=== PATIENT | male | born 1955 | race Two or more races ===

== ENCOUNTER 2021-06-15 04:11 | Inpatient (IN) | payer MEDICAID, OTHER ==
[~2021-06-15] VITALS: Ht 175.3 cm; Wt 103.8 kg
[2021-06-15 04:56] LABS: Basophils # (auto) 0.1 10 ^3/uL (0-0.2); Basophils % (auto) 0.9 % (0.0-2.0); Eosinophils # (auto) 0.1 10 ^3/uL (0-0.8); Eosinophils % (auto) 1.5 % (0.0-7.0); Lymphocytes # (auto) 1.1 10 ^3/uL (0.4-5.4); Lymphocytes % (auto) 12.7 % (10.0-50.0); Monocytes # (auto) 0.7 10 ^3/uL (0-1.3); Neutrophils # (auto) 6.4 10 ^3/uL (1.6-8.6); Nucleated Red Blood Cells % 0.1 %
[2021-06-15 04:57] LABS: Hematocrit 27.7 % (41.0-53.0); Hemoglobin 8.6 g/dL (13.5-17.5); Mean Corpuscular Hemoglobin 32.8 pg (28.0-32.0); Mean Corpuscular Hgb Conc. 31.1 g/dL (32.0-36.0); Mean Corpuscular Volume 105.6 fL (80.0-100.0); Monocytes % (auto) 7.8 % (0.0-12.0); Neutrophils % (auto) 77.1 % (37.0-80.0); Red Blood Cells 2.62 10^6/uL (4.5-5.90); Red Cell Distribution Width 16.6 % (11.8-14.3); White Blood Cell 8.3 10^3/uL (4.4-10.8)
[2021-06-15] MEDS ORDERED: AZITHROMYCIN 500MG/ 250ML 250 ML IV ONE (05:00)
[2021-06-15] MEDS ORDERED: cefTRIAXone 1GM/50ML D5W 50 ML IV ONE (05:00)
[2021-06-15 05:11] LABS: INR 0.97 (0.9-1.15)
[2021-06-15] MEDS ORDERED: FUROSEMIDE 40 MG/4 ML VIAL IV ONE (05:45)
[2021-06-15 07:38] LABS: Albumin 2.8 g/dL (3.4-5.0); Calcium 7.2 mg/dL (8.5-10.1); Magnesium 2.1 mg/dL (1.6-2.6); Potassium 4.9 mmol/L (3.5-5.1)
[2021-06-15 07:43] LABS: BUN/Creatinine Ratio 13.1; Bilirubin, Total 0.9 mg/dL (0.2-1.0); Total Protein 7.2 g/dL (6.4-8.2)
[2021-06-15] MEDS ORDERED: NITROGLYCERIN 0.4 MG SL TAB SL PRN (09:15)
[2021-06-15] MEDS ORDERED: DEXTROSE (50%) 50ML SYRG IV PRN (09:15)
[2021-06-15] MEDS ORDERED: ACETAMINOPHEN 500 MG TAB PO PRN (09:15)
[2021-06-15] MEDS ORDERED: MORPHINE SULFATE INJECTION 2 MG/ML SYRG IV PRN (09:15)
[2021-06-15] MEDS ORDERED: IPRATROPIUM BROM 0.5 MG/2.5ML INH SOL NEB ONE (09:15)
[2021-06-15] MEDS ORDERED: ONDANSETRON HCL 4 MG/2 ML VIAL IV PRN (09:15)
[2021-06-15] MEDS ORDERED: ALBUTEROL SULF 2.5 MG/0.5ML(0.5%) NEB SOLN NEB ONE (09:15)
[2021-06-15] MEDS ORDERED: HYDROcodone-ACET 5/325MG TAB PO PRN (09:15)
[2021-06-15 09:59] LABS: Phosphorus 4.3 mg/dL (2.5-4.90); Uric Acid 10.1 mg/dL (3.5-7.2)
[2021-06-15] MEDS: CARVEDILOL 3.125 MG TAB PO SCH ×2 (10:22→22:30)
[2021-06-15 10:23] VITALS: BP 194/84
[2021-06-15] MEDS: metOLazone 5 MG TAB PO SCH (10:23)
[2021-06-15] MEDS: MORPHINE SULFATE INJECTION 2 MG/ML SYRG IV PRN (10:23)
[2021-06-15] MEDS: hydrALAZINE HCL 20 MG/ML VL IV PRN (10:23)
[2021-06-15] MEDS: ALBUTEROL SULF 2.5 MG/0.5ML(0.5%) NEB SOLN NEB SCH ×2 (11:29→19:17)
[2021-06-15] MEDS: IPRATROPIUM BROM 0.5 MG/2.5ML INH SOL NEB SCH ×2 (11:29→19:17)
[2021-06-15] MEDS: ACCU-CHEK COMFORT CURVE STRIP VI SCH ×3 (11:56→22:00)
[2021-06-15] MEDS: InsuLIN REG 1unit/0.01ml Soln (100units/ml) SC SCH ×3 (11:59→22:32)
[2021-06-15] MEDS ORDERED: FUROSEMIDE 40 MG/4 ML VIAL IV SCH (18:00)
[2021-06-15] MEDS: FUROSEMIDE 100 MG/10ML VIAL IV SCH (18:10)
[2021-06-16] MEDS: IPRATROPIUM BROM 0.5 MG/2.5ML INH SOL NEB SCH ×3 (05:26→18:42)
[2021-06-16] MEDS: ALBUTEROL SULF 2.5 MG/0.5ML(0.5%) NEB SOLN NEB SCH ×3 (05:26→18:42)
[2021-06-16] MEDS: ACCU-CHEK COMFORT CURVE STRIP VI SCH ×4 (05:40→22:54)
[2021-06-16] MEDS: FUROSEMIDE 100 MG/10ML VIAL IV SCH ×2 (05:40→18:03)
[2021-06-16] MEDS: InsuLIN REG 1unit/0.01ml Soln (100units/ml) SC SCH ×4 (05:52→22:58)
[2021-06-16 06:56] LABS: Basophils # (auto) 0 10 ^3/uL (0-0.2); Eosinophils # (auto) 0 10 ^3/uL (0-0.8); Eosinophils % (auto) 0.1 % (0.0-7.0); Hemoglobin 7.3 g/dL (13.5-17.5); Monocytes # (auto) 0.8 10 ^3/uL (0-1.3)
[2021-06-16 07:01] LABS: Basophils % (auto) 0.3 % (0.0-2.0); Hematocrit 22.3 % (41.0-53.0); Lymphocytes % (auto) 8.1 % (10.0-50.0); Mean Corpuscular Hemoglobin 32.9 pg (28.0-32.0); Mean Corpuscular Hgb Conc. 32.8 g/dL (32.0-36.0); Mean Corpuscular Volume 100.2 fL (80.0-100.0); Monocytes % (auto) 6.4 % (0.0-12.0); Neutrophils # (auto) 10.9 10 ^3/uL (1.6-8.6); Neutrophils % (auto) 85.1 % (37.0-80.0); Red Blood Cells 2.23 10^6/uL (4.5-5.90); Red Cell Distribution Width 15.3 % (11.8-14.3); White Blood Cell 12.8 10^3/uL (4.4-10.8)
[2021-06-16 07:04] LABS: BUN/Creatinine Ratio 12.1; Calcium 7.3 mg/dL (8.5-10.1); Potassium 4.7 mmol/L (3.5-5.1)
[2021-06-16 07:08] LABS: % Iron Saturation 8.7 % (20-55)
[2021-06-16] MEDS: ALLOPURINOL 100 MG TAB PO SCH (07:30)
[2021-06-16] MEDS: CARVEDILOL 3.125 MG TAB PO SCH ×2 (08:24→22:53)
[2021-06-16] MEDS: metOLazone 5 MG TAB PO SCH (08:24)
[2021-06-16] MEDS: cefTRIAXone 1GM/50ML D5W 50 ML IV SCH (08:24)
[2021-06-16] MEDS: AZITHROMYCIN 500MG/ 250ML 250 ML IV SCH ×2 (08:24→12:12)
[2021-06-16] MEDS: ENOXAPARIN SOD 30 MG/0.3 ML SYRINGE SC SCH (08:25)
[2021-06-16] MEDS ORDERED: IRON SUCROSE COMPLEX 200 MG in SODIUM CHL 0.9% 100 ML IV SCH (12:00)
[2021-06-16] MEDS: SODIUM FERR GLUC 62.5MG/5ML 125 MG in SODIUM CHL 0.9% 100 ML IV SCH (12:50)
[2021-06-16] MEDS ORDERED: FURO40TA4 PO (14:16)
[2021-06-16] MEDS ORDERED: AMLO-489 PO (14:16)
[2021-06-16] MEDS ORDERED: CARV3.1240 PO (14:16)
[2021-06-16] MEDS ORDERED: INS7030I SC (14:16)
[2021-06-16] MEDS ORDERED: APIX5TAB PO (14:16)
[2021-06-16] MEDS ORDERED: ISOS1TAB28 PO (14:16)
[2021-06-17] MEDS: ALBUTEROL SULF 2.5 MG/0.5ML(0.5%) NEB SOLN NEB SCH ×3 (05:57→19:46)
[2021-06-17] MEDS: IPRATROPIUM BROM 0.5 MG/2.5ML INH SOL NEB SCH ×3 (05:57→19:46)
[2021-06-17] MEDS: InsuLIN REG 1unit/0.01ml Soln (100units/ml) SC SCH ×5 (08:15→22:00)
[2021-06-17] MEDS: FUROSEMIDE 100 MG/10ML VIAL IV SCH ×2 (08:15→17:58)
[2021-06-17] MEDS: ALLOPURINOL 100 MG TAB PO SCH (08:15)
[2021-06-17] MEDS: CARVEDILOL 3.125 MG TAB PO SCH ×2 (08:16→21:29)
[2021-06-17] MEDS: metOLazone 5 MG TAB PO SCH (08:16)
[2021-06-17] MEDS: cefTRIAXone 1GM/50ML D5W 50 ML IV SCH (08:16)
[2021-06-17] MEDS: ACCU-CHEK COMFORT CURVE STRIP VI SCH ×4 (08:16→21:23)
[2021-06-17] MEDS: ENOXAPARIN SOD 30 MG/0.3 ML SYRINGE SC SCH (08:16)
[2021-06-17] MEDS: SODIUM FERR GLUC 62.5MG/5ML 125 MG in SODIUM CHL 0.9% 100 ML IV SCH (12:40)
[2021-06-17 17:12] LABS: Calcium 7.8 mg/dL (8.5-10.1); Potassium 4.1 mmol/L (3.5-5.1)
[2021-06-17 17:14] LABS: BUN/Creatinine Ratio 14.5
[2021-06-17] MEDS: hydrALAZINE HCL 20 MG/ML VL IV PRN (20:19)
[2021-06-18] MEDS: hydrALAZINE HCL 20 MG/ML VL IV PRN ×2 (02:12→23:50)
[2021-06-18 03:59] LABS: Basophils # (auto) 0.1 10 ^3/uL (0-0.2); Eosinophils # (auto) 0.2 10 ^3/uL (0-0.8); Monocytes # (auto) 0.7 10 ^3/uL (0-1.3)
[2021-06-18 04:02] LABS: Basophils % (auto) 0.9 % (0.0-2.0); Eosinophils % (auto) 2.5 % (0.0-7.0); Hemoglobin 7.4 g/dL (13.5-17.5); Lymphocytes # (auto) 0.9 10 ^3/uL (0.4-5.4); Lymphocytes % (auto) 11.7 % (10.0-50.0); Mean Corpuscular Hemoglobin 34.1 pg (28.0-32.0); Mean Corpuscular Volume 97.6 fL (80.0-100.0); Monocytes % (auto) 8.3 % (0.0-12.0); Neutrophils % (auto) 76.6 % (37.0-80.0); Red Blood Cells 2.15 10^6/uL (4.5-5.90); Red Cell Distribution Width 14.6 % (11.8-14.3); White Blood Cell 7.9 10^3/uL (4.4-10.8)
[2021-06-18 04:17] LABS: BUN/Creatinine Ratio 14.5; Calcium 7.7 mg/dL (8.5-10.1); Potassium 4.1 mmol/L (3.5-5.1)
[2021-06-18] MEDS ORDERED: dilTIAZem 25 MG/5 ML VIAL IV STA (04:31)
[2021-06-18] MEDS: ACCU-CHEK COMFORT CURVE STRIP VI SCH ×4 (06:14→21:35)
[2021-06-18] MEDS: InsuLIN REG 1unit/0.01ml Soln (100units/ml) SC SCH ×4 (06:30→21:36)
[2021-06-18] MEDS: FUROSEMIDE 100 MG/10ML VIAL IV SCH ×2 (06:32→17:32)
[2021-06-18] MEDS: ALLOPURINOL 100 MG TAB PO SCH (07:58)
[2021-06-18] MEDS: cefTRIAXone 1GM/50ML D5W 50 ML IV SCH (07:59)
[2021-06-18] MEDS: ALBUTEROL SULF 2.5 MG/0.5ML(0.5%) NEB SOLN NEB SCH ×3 (08:07→19:53)
[2021-06-18] MEDS: IPRATROPIUM BROM 0.5 MG/2.5ML INH SOL NEB SCH ×3 (08:07→19:53)
[2021-06-18] MEDS: AZITHROMYCIN 500MG/ 250ML 250 ML IV SCH ×2 (09:13→11:19)
[2021-06-18] MEDS: CARVEDILOL 3.125 MG TAB PO SCH ×2 (09:13→21:35)
[2021-06-18] MEDS: metOLazone 5 MG TAB PO SCH (09:14)
[2021-06-18] MEDS: ENOXAPARIN SOD 30 MG/0.3 ML SYRINGE SC SCH (09:14)
[2021-06-18] MEDS: SODIUM FERR GLUC 62.5MG/5ML 125 MG in SODIUM CHL 0.9% 100 ML IV SCH (12:18)
[2021-06-18 14:37] LABS: Cholesterol 169 mg/dL (< 200); HDL Cholesterol 35 mg/dL (40-59); LDL Cholesterol 88 mg/dL (< 100); Triglycerides 172 mg/dL (< 150)
[2021-06-19 01:00] VITALS: BP 184/82
[2021-06-19] MEDS ORDERED: INFLUENZA QUAD 2020-2021 0.5 ML SYRG IM ONE (01:45)
[2021-06-19] MEDS ORDERED: PNEUMOCOCCAL VACC POLYS 25 MCG/0.5 ML VIAL IM ONE (01:45)
[2021-06-19 05:39] LABS: Eosinophils # (auto) 0.3 10 ^3/uL (0-0.8); Hemoglobin 8.1 g/dL (13.5-17.5); Monocytes # (auto) 0.6 10 ^3/uL (0-1.3); Nucleated Red Blood Cells % 0.1 %; Red Cell Distribution Width 14.7 % (11.8-14.3)
[2021-06-19 05:48] LABS: Basophils # (auto) 0 10 ^3/uL (0-0.2); Basophils % (auto) 0.8 % (0.0-2.0); Eosinophils % (auto) 4.5 % (0.0-7.0); Hematocrit 24.2 % (41.0-53.0); Lymphocytes # (auto) 0.8 10 ^3/uL (0.4-5.4); Lymphocytes % (auto) 13.9 % (10.0-50.0); Mean Corpuscular Hemoglobin 32.2 pg (28.0-32.0); Mean Corpuscular Hgb Conc. 33.4 g/dL (32.0-36.0); Mean Corpuscular Volume 96.4 fL (80.0-100.0); Monocytes % (auto) 11.1 % (0.0-12.0); Neutrophils # (auto) 4.1 10 ^3/uL (1.6-8.6); Neutrophils % (auto) 69.7 % (37.0-80.0); Red Blood Cells 2.51 10^6/uL (4.5-5.90); White Blood Cell 5.8 10^3/uL (4.4-10.8)
[2021-06-19] MEDS: FUROSEMIDE 100 MG/10ML VIAL IV SCH ×2 (06:01→18:40)
[2021-06-19 06:11] LABS: Calcium 7.8 mg/dL (8.5-10.1); Potassium 4.3 mmol/L (3.5-5.1)
[2021-06-19 06:25] LABS: BUN/Creatinine Ratio 14.9
[2021-06-19] MEDS: ALLOPURINOL 100 MG TAB PO SCH (06:30)
[2021-06-19] MEDS: ACCU-CHEK COMFORT CURVE STRIP VI SCH ×4 (06:31→22:10)
[2021-06-19] MEDS: InsuLIN REG 1unit/0.01ml Soln (100units/ml) SC SCH ×4 (06:32→22:18)
[2021-06-19] MEDS: ALBUTEROL SULF 2.5 MG/0.5ML(0.5%) NEB SOLN NEB SCH ×3 (07:17→20:01)
[2021-06-19] MEDS: IPRATROPIUM BROM 0.5 MG/2.5ML INH SOL NEB SCH ×3 (07:17→20:01)
[2021-06-19 08:00] VITALS: BP 167/84
[2021-06-19 09:00] VITALS: BP 167/84
[2021-06-19] MEDS ORDERED: ENOXAPARIN SOD 100 MG/1 ML SYRINGE SC SCH (10:00)
[2021-06-19] MEDS: cefTRIAXone 1GM/50ML D5W 50 ML IV SCH (10:27)
[2021-06-19] MEDS: CARVEDILOL 3.125 MG TAB PO SCH ×2 (10:27→22:10)
[2021-06-19] MEDS: metOLazone 5 MG TAB PO SCH (10:35)
[2021-06-19] MEDS: MORPHINE SULFATE INJECTION 2 MG/ML SYRG IV PRN (10:45)
[2021-06-19] MEDS: AZITHROMYCIN 500MG/ 250ML 250 ML IV SCH (10:48)
[2021-06-19] MEDS: SODIUM FERR GLUC 62.5MG/5ML 125 MG in SODIUM CHL 0.9% 100 ML IV SCH (15:33)
[2021-06-19 17:00] VITALS: BP 157/74
[2021-06-19] MEDS: INSULIN LANTUS (GLARGINE) 1 /0.01ml (100units/ml) SC SCH (18:42)
[2021-06-19 20:00] VITALS: BP 148/80
[2021-06-19 21:53] LABS: Alcohol, Urine < 3.0 mg/dL (0-10); Amphetamine Screen, Urine NEGATIVE (NEGATIVE); Barbiturate Scree,Urine NEGATIVE (NEGATIVE); Benzodiazephine Screen, Urine NEGATIVE (NEGATIVE); Cannabinoid Screen, Urine NEGATIVE (NEGATIVE); Cocaine Screen, Urine NEGATIVE (NEGATIVE); Opiate Scree,Urine NEGATIVE (NEGATIVE); Phencyclidine Screen, Urine NEGATIVE (NEGATIVE)
[2021-06-19 22:00] VITALS: BP 158/79
[2021-06-20 05:00] VITALS: BP 153/73
[2021-06-20] MEDS: ALBUTEROL SULF 2.5 MG/0.5ML(0.5%) NEB SOLN NEB SCH ×3 (06:06→18:00)
[2021-06-20] MEDS: IPRATROPIUM BROM 0.5 MG/2.5ML INH SOL NEB SCH ×3 (06:06→18:00)
[2021-06-20] MEDS: FUROSEMIDE 100 MG/10ML VIAL IV SCH ×2 (06:16→09:56)
[2021-06-20 06:22] LABS: Eosinophils # (auto) 0.2 10 ^3/uL (0-0.8); Lymphocytes # (auto) 0.9 10 ^3/uL (0.4-5.4); Monocytes # (auto) 0.6 10 ^3/uL (0-1.3)
[2021-06-20 06:24] LABS: Basophils # (auto) 0.1 10 ^3/uL (0-0.2); Basophils % (auto) 1.2 % (0.0-2.0); Eosinophils % (auto) 3.9 % (0.0-7.0); Hematocrit 24.3 % (41.0-53.0); Lymphocytes % (auto) 17.3 % (10.0-50.0); Mean Corpuscular Hemoglobin 31.9 pg (28.0-32.0); Mean Corpuscular Hgb Conc. 32.9 g/dL (32.0-36.0); Mean Corpuscular Volume 96.9 fL (80.0-100.0); Neutrophils # (auto) 3.3 10 ^3/uL (1.6-8.6); Neutrophils % (auto) 65.6 % (37.0-80.0); Nucleated Red Blood Cells % 0.1 %; Red Blood Cells 2.51 10^6/uL (4.5-5.90); Red Cell Distribution Width 14.7 % (11.8-14.3); White Blood Cell 5.1 10^3/uL (4.4-10.8)
[2021-06-20 06:35] LABS: BUN/Creatinine Ratio 16.3; Calcium 7.8 mg/dL (8.5-10.1)
[2021-06-20] MEDS: ACCU-CHEK COMFORT CURVE STRIP VI SCH ×4 (06:36→22:10)
[2021-06-20] MEDS: InsuLIN REG 1unit/0.01ml Soln (100units/ml) SC SCH ×4 (06:41→22:11)
[2021-06-20 07:45] VITALS: BP 155/79
[2021-06-20 09:01] VITALS: BP 155/79
[2021-06-20] MEDS: MORPHINE SULFATE INJECTION 2 MG/ML SYRG IV PRN (09:30)
[2021-06-20] MEDS: cefTRIAXone 1GM/50ML D5W 50 ML IV SCH (09:55)
[2021-06-20] MEDS: CARVEDILOL 3.125 MG TAB PO SCH (09:56)
[2021-06-20] MEDS: metOLazone 5 MG TAB PO SCH (09:57)
[2021-06-20] MEDS: INSULIN LANTUS (GLARGINE) 1 /0.01ml (100units/ml) SC SCH (09:58)
[2021-06-20] MEDS: ENOXAPARIN SOD 30 MG/0.3 ML SYRINGE SC SCH (09:59)
[2021-06-20] MEDS: AZITHROMYCIN 500MG/ 250ML 250 ML IV SCH (12:04)
[2021-06-20 12:51] VITALS: BP 147/69
[2021-06-20] MEDS: SODIUM FERR GLUC 62.5MG/5ML 125 MG in SODIUM CHL 0.9% 100 ML IV SCH (13:15)
[2021-06-20 17:00] VITALS: BP_SYST 129; BP_SYST 141; BP_DIAS 80; BP_DIAS 92
[2021-06-20] MEDS: TAMSULOSIN HYDROCHLORIDE 0.4 MG CAP PO SCH (18:41)
[2021-06-20 22:00] VITALS: BP 141/80
[2021-06-20] MEDS: CARVEDILOL 12.5 MG TAB PO SCH (22:10)
[2021-06-21 05:00] VITALS: BP 149/70
[2021-06-21 05:32] LABS: BUN/Creatinine Ratio 17.7; Potassium 4.1 mmol/L (3.5-5.1)
[2021-06-21] MEDS: ALBUTEROL SULF 2.5 MG/0.5ML(0.5%) NEB SOLN NEB SCH ×3 (05:54→18:45)
[2021-06-21] MEDS: IPRATROPIUM BROM 0.5 MG/2.5ML INH SOL NEB SCH ×3 (05:54→18:45)
[2021-06-21] MEDS: ACCU-CHEK COMFORT CURVE STRIP VI SCH ×4 (06:33→21:29)
[2021-06-21] MEDS: InsuLIN REG 1unit/0.01ml Soln (100units/ml) SC SCH ×4 (06:35→21:33)
[2021-06-21] MEDS ORDERED: ALLOPURINOL 100 MG TAB PO SCH ×2 (07:00)
[2021-06-21] MEDS: MORPHINE SULFATE INJECTION 2 MG/ML SYRG IV PRN ×2 (08:53→17:51)
[2021-06-21] MEDS: cefTRIAXone 1GM/50ML D5W 50 ML IV SCH (08:54)
[2021-06-21] MEDS: AZITHROMYCIN 500MG/ 250ML 250 ML IV SCH (10:13)
[2021-06-21] MEDS: FUROSEMIDE 100 MG/10ML VIAL IV SCH (10:13)
[2021-06-21] MEDS: ENOXAPARIN SOD 30 MG/0.3 ML SYRINGE SC SCH (10:14)
[2021-06-21] MEDS: CARVEDILOL 12.5 MG TAB PO SCH ×2 (10:14→21:28)
[2021-06-21 10:15] VITALS: BP 148/75
[2021-06-21] MEDS: INSULIN LANTUS (GLARGINE) 1 /0.01ml (100units/ml) SC SCH (11:35)
[2021-06-21] MEDS: SODIUM CHLORIDE 0.9% 250 ML IV ONE ×2 (12:00→14:31)
[2021-06-21 13:00] VITALS: BP 142/69
[2021-06-21] MEDS ORDERED: SODIUM CHLORIDE 0.9% 500 ML IV ONE ×3 (13:00→19:45)
[2021-06-21] MEDS: SODIUM FERR GLUC 62.5MG/5ML 125 MG in SODIUM CHL 0.9% 100 ML IV SCH (13:37)
[2021-06-21 16:09] LABS: BUN/Creatinine Ratio 16.6; Calcium 7.8 mg/dL (8.5-10.1); Potassium 4.1 mmol/L (3.5-5.1)
[2021-06-21] MEDS: TAMSULOSIN HYDROCHLORIDE 0.4 MG CAP PO SCH (16:54)
[2021-06-21 17:00] VITALS: BP 156/74
[2021-06-21 22:00] VITALS: BP 166/75
[2021-06-22 05:00] VITALS: BP 143/49
[2021-06-22 05:56] LABS: Potassium 4.2 mmol/L (3.5-5.1)
[2021-06-22 06:02] LABS: BUN/Creatinine Ratio 16.1; Calcium 7.5 mg/dL (8.5-10.1)
[2021-06-22] MEDS: ALBUTEROL SULF 2.5 MG/0.5ML(0.5%) NEB SOLN NEB SCH ×2 (06:21→12:20)
[2021-06-22] MEDS: IPRATROPIUM BROM 0.5 MG/2.5ML INH SOL NEB SCH ×2 (06:21→12:20)
[2021-06-22] MEDS: ACCU-CHEK COMFORT CURVE STRIP VI SCH ×2 (06:22→11:59)
[2021-06-22] MEDS: InsuLIN REG 1unit/0.01ml Soln (100units/ml) SC SCH ×2 (06:23→12:08)
[2021-06-22] MEDS ORDERED: SODIUM CHLORIDE 0.9% 750 ML IV ONE (07:15)
[2021-06-22 08:00] VITALS: BP 162/72
[2021-06-22] MEDS: FUROSEMIDE 100 MG/10ML VIAL IV SCH (09:01)
[2021-06-22] MEDS: cefTRIAXone 1GM/50ML D5W 50 ML IV SCH (09:02)
[2021-06-22] MEDS: CARVEDILOL 12.5 MG TAB PO SCH (09:02)
[2021-06-22] MEDS: MORPHINE SULFATE INJECTION 2 MG/ML SYRG IV PRN (09:03)
[2021-06-22] MEDS: ENOXAPARIN SOD 30 MG/0.3 ML SYRINGE SC SCH (09:04)
[2021-06-22] MEDS ORDERED: ALL100T PO (10:23)
[2021-06-22] MEDS: AZITHROMYCIN 500MG/ 250ML 250 ML IV SCH (10:23)
[2021-06-22] MEDS ORDERED: ALBU108A5 IN (10:23)
[2021-06-22] MEDS ORDERED: CEFU500T43 PO (10:23)
[2021-06-22] MEDS ORDERED: AZIT500T66 PO (10:23)
[2021-06-22] MEDS: SODIUM FERR GLUC 62.5MG/5ML 125 MG in SODIUM CHL 0.9% 100 ML IV SCH (12:00)
[2021-06-22] MEDS: INSULIN LANTUS (GLARGINE) 1 /0.01ml (100units/ml) SC SCH (12:07)
[2021-06-22 13:00] VITALS: BP 139/70
[2021-06-23] MEDS ORDERED: ALLOPURINOL 100 MG TAB PO SCH (10:00)
== END 2021-06-22 13:55 | disposition home or self-care (01) | DRG 720 ==
LOC: ER 04:11 → TELE 09:04 → TELE-WESTW 06-18 22:27
PROVIDERS: ADMIT Nurse Practitioner Acute Care; ATTEND Internal Medicine Pulmonary Disease
DX: A41.9 Sepsis, unspecified organism (principal); J96.21 Acute and chronic respiratory failure with hypoxia; I50.31 Acute diastolic (congestive) heart failure; N17.9 Acute kidney failure, unspecified; J18.9 Pneumonia, unspecified organism; E88.09 Other disorders of plasma-protein metabolism, not elsewhere classified; D63.8 Anemia in other chronic diseases classified elsewhere; N18.4 Chronic kidney disease, stage 4 (severe); I13.0 Hypertensive heart and chronic kidney disease with heart failure and stage 1 through stage 4 chronic kidney disease, or unspecified chronic kidney disease; E11.22 Type 2 diabetes mellitus with diabetic chronic kidney disease; E66.9 Obesity, unspecified; E79.0 Hyperuricemia without signs of inflammatory arthritis and tophaceous disease; D50.9 Iron deficiency anemia, unspecified; H34.9 Unspecified retinal vascular occlusion; J45.909 Unspecified asthma, uncomplicated; Z20.822 Contact with and (suspected) exposure to COVID-19; Z74.01 Bed confinement status; Z79.01 Long term (current) use of anticoagulants; Z79.4 Long term (current) use of insulin; Z28.21 Immunization not carried out because of patient refusal; Z68.34 Body mass index [BMI] 34.0-34.9, adult
CPT/HCPCS: 36415; 36600; 71045; 71250; 76775; 78582; 80048; 80053; 80061; 80307; 82728; 82805; 82962; 83036; 83540; 83550; 83605; 83735; 83880; 84100; 84443; 84484; 84550; 85025; 85379; 85610; 87040; 87426; 87804; 93005; 93306; 93970; 94640; 96365; 96368; 96375; 99291; G0378; J0696; J1756; J1815; J2405